=== PATIENT | male | born 1990 | race Caucasian/White ===

== ENCOUNTER 2024-05-13 12:25 | Emergency (ER) | payer OTHER ==
[2024-05-13 12:35] VITALS: BP 112/78; PULSE 98; RESP 18; TEMP 98.6; BMI 31.5
== END 2024-05-13 15:12 | disposition home or self-care (01) ==
LOC: JERFT 12:25
DX: H66.92 Otitis media, unspecified, left ear (principal); H92.02 Otalgia, left ear; J02.9 Acute pharyngitis, unspecified; J30.2 Other seasonal allergic rhinitis
CPT/HCPCS: 87651; 99283-25